=== PATIENT | female | born 1955 | race Caucasian/White ===

== ENCOUNTER 2023-07-27 22:36 | Emergency (ER) | payer OTHER, MEDICARE, SELFPAY ==
[2023-07-27 22:45] VITALS: BP 196/91; PULSE 104; O2SAT 94
[2023-07-27 22:54] VITALS: BP 196/91; PULSE 105; RESP 28; TEMP 36.8; O2SAT 96; BMI 39.1
--- NOTE | 2023-07-27 22:58 | EKG_ITS ---
[address] [id number] [address] [address] Test Date: 2023-07-27 Pat Name: Mindy Starr Department: Room: Gender: F Stock Layer: JAZMINE Mancilla : 1955 Requested By: Order Number: [id number] Reading MD: Braxton Miranda MD Measurements Intervals [place] Rate: 99 P: 60 [place]: 200 QRS: 82 QRSD: 90 T: 52 QT: 316 QTc: 405 Interpretive Statements Normal sinus rhythm Electronically Signed On 07-28-2023 11:55:48 PDT by rBaxton Miranda MD
[2023-07-27 23:00] VITALS: PULSE 97; RESP 24; O2SAT 93
[2023-07-27 23:01] VITALS: BP 193/84; PULSE 102; RESP 22; O2SAT 93
--- NOTE | 2023-07-27 23:13 | DI.RAD.S_ITS ---
PROCEDURE: XR CHEST 1V INDICATIONS: SOB TECHNIQUE: One view of the chest was acquired. COMPARISON: None. FINDINGS: Surgical changes and devices: None. Lungs and pleura: Lungs are clear. No pleural effusions or pneumothorax. Mediastinum: Mediastinal contours appear normal. Heart size is normal. Bones and chest wall: No suspicious bony lesions. Overlying soft tissues appear unremarkable. IMPRESSION: No acute cardiopulmonary abnormality is seen. Approved by: Gege Carvajal M.D.,Ph.D. on 07/28/2023 at 0:34
[2023-07-27 23:22] LABS: Add Manual Diff / Slide Review NO; Basophils Absolute Auto 100 /uL (0-100); Basophils Percent Auto 0.9 % (0-2); Eosinophils Absolute Auto 500 /uL (0-450); Eosinophils Percent Auto 6.9 % (2-4); Hematocrit 41.1 % (36-46); Hemoglobin 13.7 g/dL (12.0-16.0); Lymphocytes Absolute Auto 1800 /uL (1100-4500); Lymphocytes Percent Auto 25.6 % (25-40); Mean Corpuscular HGB Conc 33.4 % (30-36); Mean Corpuscular Volume 83.8 fL (80-100); Monocytes Absolute Auto 600 /uL (0-900); Monocytes Percent Auto 8.5 % (3-14); Neutrophils Absolute Auto 4200 /uL (1500-7000); Neutrophils Percent Auto 58.1 % (50-75); Platelet Count 235 X10^3/uL (150-400); Red Blood Cell Count 4.91 X10^6/uL (4.0-5.2); Red Cell Distribution Width 14.6 % (11.6-14.8); White Blood Cell Count 7.2 X10^3/uL (4.5-11.0)
[2023-07-27 23:27] LABS: Alanine Aminotransferase 30 IU/L (<35); Albumin 4.3 g/dL (3.5-5.0); Albumin Globulin Ratio 1.8 (1.0-2.8); Alkaline Phosphatase 74 U/L (38-126); Aspartate Aminotransferase 30 IU/L (14-36); BUN Creatinine Ratio 21.9 (6-22); Bilirubin Total 0.6 mg/dL (0.2-1.3); Blood Urea Nitrogen 21 mg/dL (7-17); Calcium 9.5 mg/dL (8.4-10.2); Carbon Dioxide 27 mmol/L (22-32); Chloride 109 mmol/L (98-107); Creatine Kinase 65 U/L (30-135); Estimated Glomerular Filt Rate > 60 mL/min (>60); Globulin 2.4 g/dL (1.7-4.1); Glucose 117 mg/dL (80-110); HEMOLYSIS < 15 (0-50); Lipase 118 U/L (23-300); Sodium 141 mmol/L (137-145); Total Protein 6.7 g/dL (6.3-8.2)
[2023-07-27 23:30] VITALS: PULSE 101; RESP 18; O2SAT 96
[2023-07-27 23:31] VITALS: BP 160/73; PULSE 99; RESP 15; O2SAT 97
[2023-07-27 23:36] LABS: NT-proBNP (BNP-Adult 18+) 54 pg/mL (<125)
[2023-07-27 23:39] LABS: Troponin I < 0.012 ng/mL (0.01-0.034)
[2023-07-27] MEDS: ALBUTEROL/IPRATROPIUM 3 ML AMPUL INH (23:46)
[2023-07-27] MEDS: ALBUTEROL/IPRATROPIUM 3 ML AMPUL 6 ML INH (23:51)
[2023-07-28] VITALS (13 sets, daily range): BP systolic 152–177; BP diastolic 68–83; PULSE 103–124; RESP 13–29; O2SAT 89–99
--- NOTE | 2023-07-28 00:12 | ED.GENADULT ---
HPI - General Adult General Chief complaint: Shortness of Breath/Dyspnea Stated complaint: SOB Time Seen by Provider: 07/27/23 23:11 Source: patient and EMS Mode of arrival: EMS History of Present Illness HPI narrative: Patient is a 68-year-old female. No prior diagnosed lung pathology. No prior smoking history although her parents both smoked. No history of asthma/COPD/CHF. Ever since returning home from a vacation several months ago she has had intermittent episodes of shortness of breath with wheezing. She states that does seem to occur more in the evening although it has happened throughout the day. It does happen every day but some days do seem to be worse than others. She has talk with her primary doctor. Has gone through a course of antibiotics. Was also given an albuterol inhaler. She stated that she did not have much improvement after the course of antibiotics. She was scheduled to have a chest x-ray performed tomorrow as an outpatient ordered by her primary doctor for the evaluation of her presenting symptoms today. She states that today she did exert herself and when she got home she became more acutely short of breath. Her inhaler was not working. EMS was called. She did receive a nebulizer by EMS prior to arrival which she states did help her symptoms somewhat. She denies fever. Does have a nonproductive cough. No chest pain. No abdominal pain. No lower extremity swelling. Related Data Previous Rx's Medication Instructions Recorded prednisone 20 mg tablet See Rx Instructions .Route 07/28/23 .COMPLEX #18 tabs Allergies Allergy/AdvReac Type Severity Reaction Status Date / Time No Known Drug Allergies Allergy Verified 07/27/23 23:05 Review of Systems Review of Systems ROS Unobtainable: All systems reviewed & are unremarkable except as noted in HPI and below Patient History Social History Smoking Status: Never smoker Smoking Status: Never smoker alcohol intake frequency: 0-2 drinks per day Substance Use Type: does not use Exam Initial Vital Signs Initial Vital Signs: Vital Signs Pulse Rate 104 H 07/27/23 22:45 Blood Pressure 196/91 H 07/27/23 22:45 Pulse Oximetry 94 07/27/23 22:45 Const General: cooperative, comfortable and No ill appearing HENMT Head: normal to inspection and normocephalic Resp Effort & Inspection: labored and tachypneic Auscultation: wheezes Cardio Rate: tachycardic Rhythm: regular rhythm Skin General: no rashes or lesions noted Extrem General: No edema Course Orders Ordered: ED Orders 07/27/23 22:30 Complete Blood Count AUTO DIFF Stat Comprehensive Metabolic Panel Stat Lipase Stat NT-proBNP (BNP-Adult 18+) Stat Troponin & CK Cardiac Panel Stat 07/27/23 23:13 XR chest 1V Stat EKG-12 Lead Stat RT Consult Eval and Treat Now 07/27/23 23:21 Respiratory Panel (Film Array) Stat 07/28/23 00:38 CT angio chest PE protocol Stat Discontinued Medications Albuterol (Albuterol 2.5 Mg/3 Ml Neb (Adult)) 5 mg INH NOW ONE Stop: 07/28/23 01:33 Last Admin: 07/28/23 01:40 Dose: 5 mg Documented By: Albuterol/Ipratropium (Albuterol/Ipratropium 3 Ml Ampul) 3 ml INH NOW ONE Stop: 07/27/23 23:41 Last Admin: 07/27/23 23:46 Dose: 3 ml Documented By: MR Albuterol/Ipratropium (Albuterol/Ipratropium 3 Ml Ampul) 6 ml INH NOW ONE Stop: 07/27/23 23:48 Last Admin: 07/27/23 23:51 Dose: 6 ml Documented By: MR Methylprednisolone (Methylprednisolone 125 Mg/2 Ml Vial) 125 mg IV NOW ONE Stop: 07/28/23 00:13 Last Admin: 07/28/23 00:23 Dose: 125 mg Documented By: PRESTON Vital Signs Vital signs: Vital Signs - 8 hr 07/27/23 22:45 07/27/23 22:45 07/27/23 22:54 Temperature 98.2 F Pulse Rate 104 H 105 H Respiratory Rate 28 H Blood Pressure 196/91 H 196/91 H Pulse Oximetry 94 96 Oxygen Delivery Method Room Air Oxygen Flow Rate 07/27/23 23:00 07/27/23 23:01 07/27/23 23:01 Temperature Pulse Rate 97 H 102 H Respiratory Rate 24 22 Blood Pressure 193/84 H Pulse Oximetry 93 93 Oxygen Delivery Method Oxygen Flow Rate 07/27/23 23:30 07/27/23 23:31 07/27/23 23:31 Temperature Pulse Rate 101 H 99 H Respiratory Rate 18 15 Blood Pressure 160/73 H Pulse Oximetry 96 97 Oxygen Delivery Method Oxygen Flow Rate 07/28/23 00:00 07/28/23 00:01 07/28/23 00:01 Temperature Pulse Rate 103 H 103 H Respiratory Rate 13 13 Blood Pressure 152/68 H Pulse Oximetry 99 98 Oxygen Delivery Method Oxygen Flow Rate 07/28/23 00:30 07/28/23 00:30 07/28/23 01:00 Temperature Pulse Rate 108 H 110 H Respiratory Rate 29 H 28 H Blood Pressure 169/77 H Pulse Oximetry 92 91 Oxygen Delivery Method Oxygen Flow Rate 07/28/23 01:30 07/28/23 01:38 07/28/23 01:45 Temperature Pulse Rate 103 H Respiratory Rate 20 Blood Pressure Pulse Oximetry 89 L 91 90 L Oxygen Delivery Method Room Air Nasal Cannula Nasal Cannula Oxygen Flow Rate 2 2 07/28/23 02:00 07/28/23 02:01 07/28/23 02:45 Temperature Pulse Rate 112 H 124 H Respiratory Rate 18 24 Blood Pressure 177/83 H Pulse Oximetry 94 92 Oxygen Delivery Method Nasal Cannula Oxygen Flow Rate 2 Medical Decision Making Lab Data Lab results reviewed: Yes I reviewed the patient's lab results. 07/27/23 22:30 07/27/23 22:30 Labs: Lab Results 07/27/23 07/27/23 Range/Units 22:30 23:21 WBC 7.2 (4.5-11.0) X10^3/uL RBC 4.91 (4.0-5.2) X10^6/uL Hgb 13.7 (12.0-16.0) g/dL Hct 41.1 (36-46) % MCV 83.8 (80-100) fL MCH 28.0 (26-34) PG MCHC 33.4 (30-36) % RDW 14.6 (11.6-14.8) % Plt Count 235 (150-400) X10^3/uL Neut % (Auto) 58.1 (50-75) % Lymph % (Auto) 25.6 (25-40) % Story % (Auto) 8.5 (3-14) % Eos % (Auto) 6.9 H (2-4) % Baso % (Auto) 0.9 (0-2) % Neut # (Auto) 4200 (0442-4437) /uL Lymph # (Auto) 1800 (2685-1684) /uL Story # (Auto) 600 (0-900) /uL Eos # (Auto) 500 H (0-450) /uL Baso # (Auto) 100 (0-100) /uL Sodium 141 (137-145) mmol/L Potassium 4.0 (3.4-5.1) mmol/L Chloride 109 H (98-107) mmol/L Carbon Dioxide 27 (22-32) mmol/L BUN 21 H (7-17) mg/dL Creatinine 0.96 (0.52-1.04) mg/dL Estimated GFR > 60 (>60) mL/min BUN/Creatinine Ratio 21.9 (6-22) Glucose 117 H (80-110) mg/dL Calcium 9.5 (8.4-10.2) mg/dL Total Bilirubin 0.6 (0.2-1.3) mg/dL AST 30 (14-36) IU/L ALT 30 (<35) IU/L Alkaline Phosphatase 74 (38-126) U/L Total Creatine Kinase 65 (30-135) U/L Troponin I < 0.012 (0.01-0.034) ng/mL NT-Pro-B Natriuret Pep 54 (<125) pg/mL Total Protein 6.7 (6.3-8.2) g/dL Albumin 4.3 (3.5-5.0) g/dL Globulin 2.4 (1.7-4.1) g/dL Albumin/Globulin Ratio 1.8 (1.0-2.8) Lipase 118 (23-300) U/L Chlamy pneumoniae PCR Not detected (Not Detect) Adenovirus (PCR) Not detected (Not Detect) B.parapertussis DNA PCR Not detected (Not Detecte) Coronavirus OC43 (PCR) Not detected (Not Detect) Coronavirus HKU1 (PCR) Not detected (Not Detect) Coronavirus 229E (PCR) Not detected (Not Detect) SARS-CoV-2 (PCR) Not detected (Not Detecte) Coronavirus NL63 (PCR) Not detected (Not Detect) Human Metapneumovir PCR Not detected (Not Detect) Influenza Type A (PCR) Not detected (Not Detect) Influenza Type B (PCR) Not detected (Not Detect) M. pneumoniae (PCR) Not detected (Not Detect) Parainfluenza 1 (PCR) Not detected (Not Detect) Parainfluenza 2 (PCR) Not detected (Not Detect) Parainfluenza 3 (PCR) Not detected (Not Detect) Parainfluenza 4 (PCR) Not detected (Not Detect) RSV (PCR) Not detected (Not Detect) Entero/Rhino (PCR) Not detected (Not Detect) Imaging Data Chest x-ray: Radiologist's Impression: PROCEDURE: XR CHEST 1V INDICATIONS: SOB TECHNIQUE: One view of the chest was acquired. COMPARISON: None. FINDINGS: Surgical changes and devices: None. Lungs and pleura: Lungs are clear. No pleural effusions or pneumothorax. Mediastinum: Mediastinal contours appear normal. Heart size is normal. Bones and chest wall: No suspicious bony lesions. Overlying soft tissues appear unremarkable. IMPRESSION: No acute cardiopulmonary abnormality is seen. CT scan - chest: Radiologist's Impression: PROCEDURE: CT ANGIO CHEST PE PROTOCOL INDICATIONS: Chest pain, shortness of breath, tachycardia TECHNIQUE: After the administration of intravenous contrast, 2 mm thick sections acquired from the pulmonary apices to the posterior costophrenic angles. 3-dimensional maximum intensity projection (MIP) coronal and sagittal reformats were then acquired through the thorax. For radiation dose reduction, the following was used: automated exposure control, adjustment of mA and/or kV according to patient size. COMPARISON: None. FINDINGS: Image quality: Diagnostic. Pulmonary arteries: Pulmonary arteries are normal in size, and demonstrate no intraluminal filling defects to the level of the subsegmental pulmonary arteries. Lower Neck: No enlarged lymph nodes. Thyroid: No thyroid nodules which require sonographic follow up, per consensus guidelines. Axillae: No enlarged lymph nodes. Chest Wall: Unremarkable. Bones: Unremarkable. Lungs and Pleura: No pneumothorax or pleural effusions. No consolidation. Scattered sub 6 mm pulmonary nodules. Heart: Heart size is normal. No pericardial effusion. Thoracic Vessels: No aortic aneurysm. Mediastinum and Estefanía: No enlarged lymph nodes. Esophagus: No wall thickening. No hiatal hernia. Upper Abdomen: Visualized upper abdomen solid organs and bowel loops appear normal. IMPRESSION: No pulmonary embolus to the level of subsegmental pulmonary arteries. No acute cardiopulmonary process. Scattered sub 6 mm pulmonary nodules. If patient is high risk for lung malignancy, recommend follow-up CT chest in 12 months to demonstrate stability per Fleischner society guidelines. ECG Data Attestation: I personally reviewed and interpreted this ECG as follows: Interpretation: Sinus rhythm Ventricular rate 99 Normal axis Normal QRS Normal QTC No ST T wave changes MDM Narrative Medical decision making narrative: She does have diffuse wheezing throughout even after multiple nebulizer treatments. She states she is feeling much better than when she arrived here in the ER. She states that how she was feeling after the nebulizer treatments is how she feels at home when she has the exacerbations. The chest x-ray shows no acute pathology. She is sinus rhythm on her EKG. Her labs are unremarkable. I have low suspicion that this is pneumonia. Low suspicion that this is bronchitis. She was having a reactive response to something although it does not appear to be any specific triggers. Low suspicion this is cardiac etiology. She has not in acute heart failure. Patient also had a episode of hypoxia so she was given more nebulizers. Her oxygen saturations now are maintaining above 90%. She ambulated around the emergency department without dropping less than 92%. I had a long discussion with her regarding her symptoms. I do not have an exact etiology. There was no indication for antibiotics. I will place her on a steroid taper for the next several days. This was sent to the pharmacy of her choice. I advised that she contact her primary doctor for a follow-up. Patient was given a copy of the radiology reports. The radiology reports were sent to the [facility] system which is what her primary doctor is associated with and they were given a copy of the imaging studies on a CD. We also discussed the incidental pulmonary nodules on her CT scan today. She was informed that this is going to need follow-up with her primary doctor as well. Both her and her expressed understanding and agreement with plan. Discharge Plan Departure Patient Disposition: Home Clinical Impression: Reactive airway disease with wheezing, Pulmonary nodule Instructions: DI for Reactive Airway Disease-Adult Activity Restrictions/Additional Instructions: Use the albuterol inhaler with a spacer as needed. Start taking the steroid taper as directed. I do recommend that you contact your primary doctor tomorrow to let the office know that you have had the x-ray and also an additional CT scan. Return to the emergency department for worsening symptoms. Prescriptions: New prednisone 20 mg tablet See Rx Instructions .ROUTE .COMPLEX Qty: 18 0RF Rx Instructions: 2T PO QD for 5D then 1T Po QD for 5D then 1/2T Po QD for 5D Referrals: Miscellaneous,Doctor, MD [Primary Care Provider] - Stand Alone Forms: Patient Portal/API
[2023-07-28 00:13] LABS: Adenovirus Not Detected (Not Detect); B. parapertussis Not Detected (Not Detecte); Bordetella pertussis Not Detected (Not Detect); Chlamydophila pneumoniae Not Detected (Not Detect); Coronavirus 229E Not Detected (Not Detect); Coronavirus HKU1 Not Detected (Not Detect); Coronavirus NL 63 Not Detected (Not Detect); Coronavirus OC43 Not Detected (Not Detect); Human Metapneumovirus Not Detected (Not Detect); Human Rhinovirus/Enterovirus Not Detected (Not Detect); Influenza A Not Detected (Not Detect); Influenza B Not Detected (Not Detect); Mycoplasma pneumoniae Not Detected (Not Detect); Parainfluenza Virus 1 Not Detected (Not Detect); Parainfluenza Virus 2 Not Detected (Not Detect); Parainfluenza Virus 3 Not Detected (Not Detect); Parainfluenza Virus 4 Not Detected (Not Detect); Respiratory Syncytial Virus Not Detected (Not Detect); SARS- CoV-2 Not Detected (Not Detecte)
[2023-07-28] MEDS: methylPREDNISolone 125 MG/2 ML VIAL IV (00:23)
--- NOTE | 2023-07-28 00:38 | DI.CT.S_ITS ---
PROCEDURE: CT ANGIO CHEST PE PROTOCOL INDICATIONS: Chest pain, shortness of breath, tachycardia TECHNIQUE: After the administration of intravenous contrast, 2 mm thick sections acquired from the pulmonary apices to the posterior costophrenic angles. 3-dimensional maximum intensity projection (MIP) coronal and sagittal reformats were then acquired through the thorax. For radiation dose reduction, the following was used: automated exposure control, adjustment of mA and/or kV according to patient size. COMPARISON: None. FINDINGS: Image quality: Diagnostic. Pulmonary arteries: Pulmonary arteries are normal in size, and demonstrate no intraluminal filling defects to the level of the subsegmental pulmonary arteries. Lower Neck: No enlarged lymph nodes. Thyroid: No thyroid nodules which require sonographic follow up, per consensus guidelines. Axillae: No enlarged lymph nodes. Chest Wall: Unremarkable. Bones: Unremarkable. Lungs and Pleura: No pneumothorax or pleural effusions. No consolidation. Scattered sub 6 mm pulmonary nodules. Heart: Heart size is normal. No pericardial effusion. Thoracic Vessels: No aortic aneurysm. Mediastinum and Estefanía: No enlarged lymph nodes. Esophagus: No wall thickening. No hiatal hernia. Upper Abdomen: Visualized upper abdomen solid organs and bowel loops appear normal. IMPRESSION: No pulmonary embolus to the level of subsegmental pulmonary arteries. No acute cardiopulmonary process. Scattered sub 6 mm pulmonary nodules. If patient is high risk for lung malignancy, recommend follow-up CT chest in 12 months to demonstrate stability per Fleischner society guidelines. Approved by: Gege Carvajal M.D.,Ph.D. on 07/28/2023 at 1:37
[2023-07-28] MEDS: ALBUTEROL 2.5 MG/3 ML NEB (ADULT) 5 MG INH (01:40)
== END 2023-07-28 03:17 | disposition home or self-care (01) ==
PROVIDERS: Emergency Provider Emergency Medicine
DX: J45.909 Unspecified asthma, uncomplicated (principal); R91.1 Solitary pulmonary nodule; R07.9 Chest pain, unspecified; R00.0 Tachycardia, unspecified; Z20.822 Contact with and (suspected) exposure to COVID-19
CPT/HCPCS: 71045; 71275; 80053; 82550; 83690; 83880; 84484; 85025; 87633; 93005; 94640; 96374; 99284; 99285; J2919; J7613; Q9967